=== PATIENT | female | born 1950 | race Caucasian/White ===

== ENCOUNTER 2018-02-13 17:51 | Emergency (ER) | payer MEDICARE ==
[~2018-02-13] VITALS: Ht 149.9 cm; Wt 74.8 kg
[2018-02-13] MEDS ORDERED: PIOG45 PO (18:09)
[2018-02-13] MEDS ORDERED: Flovent 220 Ora12 GM INH (18:09)
[2018-02-13] MEDS ORDERED: METF500 PO (18:10)
[2018-02-13] MEDS ORDERED: DULO30 PO (18:10)
[2018-02-13] MEDS ORDERED: LEVSOD75 PO (18:10)
[2018-02-13] MEDS ORDERED: MONT10T PO (18:11)
[2018-02-13] MEDS ORDERED: INSDET100 (18:11)
[2018-02-13] MEDS ORDERED: BENA20 PO (18:11)
[2018-02-13] MEDS ORDERED: ATOR40TA PO (18:11)
[2018-02-13] MEDS ORDERED: Flovent Disku100 MCG INH (18:32)
[2018-02-13] MEDS ORDERED: ALBU90OI INH (18:32)
== END 2018-02-13 18:45 | disposition home or self-care (01) ==
LOC: ER 17:51
DX: J45.909 Unspecified asthma, uncomplicated (principal); Z88.5 Allergy status to narcotic agent; Z79.899 Other long term (current) drug therapy; Z79.84 Long term (current) use of oral hypoglycemic drugs; Z79.4 Long term (current) use of insulin; E11.9 Type 2 diabetes mellitus without complications; Z87.891 Personal history of nicotine dependence
CPT/HCPCS: 93005; 93010; 94640; 99283